=== PATIENT | male | born 1985 | race Two or more races ===

== ENCOUNTER 2019-07-31 00:48 | Inpatient (IN) | payer MEDICAID ==
[~2019-07-31] VITALS: Ht 167.6 cm; Wt 93.0 kg
[2019-07-31] VITALS (12 sets, daily range): BP systolic 90–169; BP diastolic 40–88
--- NOTE | 2019-07-31 00:48 | NUR ---
PT BIB EMS FROM HOME C/O ALTERED POSS OVERDOSE "METH, COCCAINE & ETOH" PER EMS REPORT. PT NONVERBAL. PT ON MONITOR IN BED 4. WILL CONTINUE TO MONITOR.
--- NOTE | 2019-07-31 01:05 | NUR ---
PHLEB AT BEDSIDE FOR BLOOD DRAW
--- NOTE | 2019-07-31 01:09 | NUR ---
TECH AT BEDSIDE FOR EKG
[2019-07-31 01:14] LABS: MONOCYTES # (AUTO) 2.9 /CMM (0.1-1.30)
[2019-07-31] MEDS ORDERED: HALOPERIDOL LACTATE INJ 5 MG/ML VIAL ONE (01:14)
[2019-07-31 01:17] LABS: BASOPHILS % (AUTO) 0.1 % (0.0-2.0); EOSINOPHILS % (AUTO) 0.4 % (0.0-6.0); HEMATOCRIT 41 % (39-51); LYMPHOCYTES % (AUTO) 4.2 % (20.0-44.0); MEAN CORPUSCULAR HGB CONC 34 g/dl (31.0-36.0); MEAN CORPUSCULAR VOLUME 94 fL (80-96); MONOCYTES % (AUTO) 12.2 % (2.0-12.0); NEUTROPHILS # (AUTO) 19.6 /CMM (1.8-8.9); NEUTROPHILS % (AUTO) 83.1 % (43.0-81.0); WHITE BLOOD COUNT (AUTO) 23.6 K/uL (4.3-11.0)
--- NOTE | 2019-07-31 01:19 | NUR ---
PT TAKEN TO RADIOLOGY [facility]IA [facility]
[2019-07-31 01:20] LABS: PLATELET COUNT (AUTO) 36 /CMM (150-450)
[2019-07-31 01:23] LABS: CALCIUM, SERUM 8.3 mg/dL (8.5-10.1); CARBON DIOXIDE 23 mmol/L (21-32); CHLORIDE 93 mmol/L (98-107); CREATININE 1.1 mg/dL (0.6-1.3); GLUCOSE 96 mg/dL (74-106); POTASSIUM 4.8 mmol/L (3.5-5.1); SODIUM SERUM 124 mmol/L (136-145); UREA NITROGEN, BLOOD 26 mg/dL (7-18)
[2019-07-31 01:28] LABS: ALANINE AMINOTRANSFERASE 44 U/L (12-78); ALBUMIN 2.2 g/dL (3.4-5.0); ALCOHOL, BLOOD < 3 mg/dL (0-0); ALKALINE PHOSPHATASE 165 U/L (46-116); ASPARTATE AMINOTRANSFERASE 75 U/L (15-37); BILIRUBIN,DIRECT 5.2 mg/dL (0.0-0.2); BILIRUBIN,TOTAL 7.9 mg/dL (0.2-1.0); TOTAL PROTEIN, SERUM 5.7 g/dL (6.4-8.2)
--- NOTE | 2019-07-31 01:29 | NUR ---
PT RETURNED FROM RADIOLOGY VIA [facility]
[2019-07-31] MEDS ORDERED: HALOPERIDOL LACTATE INJ 5 MG/ML VIAL IM ONE (01:30)
[2019-07-31 01:34] LABS: ACETAMINOPHEN 0 ug/ml (10-30); SALICYLATE < 0.2 mg/dL (2.8-20.0)
--- NOTE | 2019-07-31 01:42 | NUR ---
PT TAKEN TO RADIOLOGY [facility]IA [facility]
--- NOTE | 2019-07-31 01:49 | NUR ---
PT RETURNED FROM RADIOLOGY VIA [facility]
[2019-07-31] MEDS ORDERED: IV NS 0.9% 1,000 ML IV PRN (02:08)
[2019-07-31] MEDS ORDERED: LIDOCAINE 2% JEL UROJET 10 ML MM ONE (02:08)
--- NOTE | 2019-07-31 02:15 | NUR ---
BLOOD DRAWN AND GIVEN TO LAB
--- NOTE | 2019-07-31 02:19 | NUR ---
URINE COLLECTED AND SENT TO LAB
[2019-07-31 02:26] LABS: LYMPHOCYTES % (MANUAL) 4 % (16-48); MONOCYTES % (MANUAL) 10 % (0-11.0); NEUTROPHILS % (MANUAL) 88 (42-76)
[2019-07-31] MEDS ORDERED: ONDANSETRON HCL/PF 4 MG/2 ML VIAL IVP PRN (02:30)
[2019-07-31 02:36] LABS: APPEARANCE,URINE CLEAR (CLEAR); BILIRUBIN,URINE MODERATE (NEGATIVE); BLOOD, URINE TRACE-INTA Ery/uL (NEGATIVE); COLOR,URINE DARK YELLO (YELLOW); KETONES,URINE NEGATIVE (NEGATIVE); LEUKOCYTE ESTERASE ,URINE NEGATIVE (NEGATIVE); NITRITE, URINE NEGATIVE (NEGATIVE); PH,URINE 5.5 (5.0-8.0); PROTEIN,URINE NEGATIVE (NEGATIVE); UGLUCOSE NEGATIVE (NEGATIVE)
[2019-07-31 02:39] LABS: BACTERIA,URINE Few /HPF (None Seen); RBC,URINE 0-2 /HPF (0-2); SQUAMOUS EPITHELIAL CELL,UR Few /HPF (None Seen)
--- NOTE | 2019-07-31 03:04 | NUR ---
REPORT GIVEN TO MADHURI PHILIP FOR STEPHANI
--- NOTE | 2019-07-31 05:39 | NUR ---
TELE/RN ORDER FOR PLATELETS HELD DUE TO PATIENT HAVING A FEVER OF 100.6. WILL GIVE ORDERED TYLENOL AND WILL RE ASSESS FOR ADMINISTRATONG OF PLATELETS
[2019-07-31] MEDS: ACETAMINOPHEN 650 MG/SUPP.RECT RC PRN ×2 (06:17→14:35)
--- NOTE | 2019-07-31 07:15 | NUR ---
VACUUM PAN OPERATOR NOTES OPENING PATIENT IN BED A/O XO WITH FAMILY AT BEDSIDE. NO SIGN OF ANY DISTRESS AT THIS TIME. PATIENT IS SINUS RHYTHM ON THE MONITOR. WILL CONTINUE TO MONITOR PATIENT.
--- NOTE | 2019-07-31 07:47 | NUR ---
TELE/ RN CLOSING NOTE PATIENT IN BED A/O XO WITH FAMILY AT BEDSIDE. NO SIGN OF ANY DISTRESS AT THE MOMENT. PATIENT IS SINUS RHYTHM ON THE MONITOR. ENDORSED TO NURSE PATIENT FEVER AND ALL OTHER PATIENTS NEEDS.
[2019-07-31] MEDS ORDERED: PIPERACILLIN /TAZOBACTAM 3.375 G in IV NS 0.9% 50 ML IV ONE (08:30)
[2019-07-31] MEDS ORDERED: PIPERACILLIN /TAZOBACTAM 3.375 G in IV D5W 50 ML IV ONE (08:31)
[2019-07-31] MEDS ORDERED: THIAMINE HCL 100 MG TABLET PO SCH (09:00)
--- NOTE | 2019-07-31 09:23 | NUR ---
STAINED GLASS GLAZIER HELPER/MED RECON PATIENT UNABLE TO PROVIDE INFO. FAMILY AT BEDSIDE, PER FAMILY "HE DOESN'T TAKE ANY MEDICATION FAR WE KNOW".
[2019-07-31] MEDS: Thiamine 100 MG in IV D5W 50 ML IV SCH (11:26)
[2019-07-31] MEDS: LORAZEPAM INJ 2 MG/ML VIAL IV PRN (12:13)
[2019-07-31] MEDS: Folic acid 1 MG in IV D5W 50 ML IV SCH (12:27)
[2019-07-31] MEDS: PIPERACILLIN /TAZOBACTAM 3.375 G in IV D5W 100 ML IV SCH ×2 (13:04→21:12)
[2019-07-31 14:22] LABS: CREATININE 1.1 mg/dL (0.6-1.3); POTASSIUM 4.4 mmol/L (3.5-5.1)
--- NOTE | 2019-07-31 15:00 | NUR ---
DISCHARGE PLANNER NOTES PATIENT HAS FEVER 100.2, COOLING MEASURE DONE. PATIENT HAS 900ML URINARY RETENTION ( BLADDER SCAN). INFORMED DR LANDIN AND HE ORDERED WHITE CATHETER. PER MD IT IS OK TO ADMINISTER THE PLATELETS.
--- NOTE | 2019-07-31 17:30 | NUR ---
EAP CLINICIAN NOTES PATIENT A/O 1 OPEN EYES WHEN NAME CALLED.ALL NEEDS ATTENDED. NO FEVER NOTED AT THIS TIME. PLATELETS ADMINISTRATED PER MD ORDER AND PT TOLERATED WELL WITH NO FEVER, VITAL WNL. ENDORSED TO HR ANALYST NURSE FOR STEPHANI.
--- NOTE | 2019-07-31 19:40 | NUR ---
RN Notes Patient asleep, opens eyes to verbal and tactile stimuli, patient very lethargic. Attached to med therm to monitor body temperature. Tele monitor reads Sinus rhythm with heart rate at 78. IV access on left AC patent and intact with ongoing IVF infusing well. Alex intact to gravity with brown colored urine. Kept comfortable and attended. Will continue to monitor.
[2019-08-01] VITALS: BP 102/47
--- NOTE | 2019-08-01 00:30 | NUR ---
RN Notes Received a call from Lab, blood culture has gram positive cocci in chains. COLLETTE Lomeli notified with order of Vancomycin pharmacy to dose. Pharmacy made aware.
[2019-08-01] MEDS ORDERED: VANCOMYCIN 1 GM VIAL ONE (00:42)
[2019-08-01] MEDS ORDERED: VANCOMYCIN 2 GM in IV NS 0.9% 500 ML IV ONE (01:00)
[2019-08-01 04:00] VITALS: BP 125/60
[2019-08-01] MEDS: PIPERACILLIN /TAZOBACTAM 3.375 G in IV D5W 100 ML IV SCH ×3 (05:03→20:55)
--- NOTE | 2019-08-01 07:09 | NUR ---
RN Notes Patient awake, alert and oriented x2, verbal, denies any pain. Vital signs stable, afebrile. Tele monitor reads Sinus rhythm. Current diet tolerated well, no signs of aspiration noted. Safety measures and fall precaution observed. Kept clean and dry. Patient starts to wake up, and constantly moving in bed, scratching his feet and was noted with open wound in right ankle measuring 3cm x 2cm. Cleansed with NS and covered with mepilex and elevate legs in pillows. Frank Fu DNP notified. Wound care consult ordered. Seen by wound nurse. Incident report done.
[2019-08-01 07:10] LABS: BASOPHILS # (AUTO) 0.2 /CMM (0.0-0.2); BASOPHILS % (AUTO) 0.5 % (0.0-2.0); EOSINOPHILS % (AUTO) 0.3 % (0.0-6.0); HEMATOCRIT 42 % (39-51); HEMOGLOBIN 14.1 g/dL (13.5-17.5); LYMPHOCYTES # (AUTO) 1.9 /CMM (0.8-4.8); MEAN CORPUSCULAR HGB CONC 34 g/dl (31.0-36.0); MEAN CORPUSCULAR VOLUME 93 fL (80-96); MONOCYTES # (AUTO) 3.9 /CMM (0.1-1.30); MONOCYTES % (AUTO) 12.7 % (2.0-12.0); NEUTROPHILS # (AUTO) 24.9 /CMM (1.8-8.9); NEUTROPHILS % (AUTO) 80.5 % (43.0-81.0); RED BLOOD CELL COUNT(AUTO) 4.45 MIL/uL (4.5-6.0)
[2019-08-01 07:33] LABS: PLATELET COUNT (AUTO) 39 /CMM (150-450)
[2019-08-01 07:42] LABS: ALBUMIN 1.9 g/dL (3.4-5.0); BILIRUBIN,TOTAL 9.2 mg/dL (0.2-1.0); CALCIUM, SERUM 7.7 mg/dL (8.5-10.1); MAGNESIUM 2.9 mg/dL (1.8-2.4); PHOSPHORUS 2.8 mg/dL (2.5-4.9); TOTAL PROTEIN, SERUM 5.5 g/dL (6.4-8.2)
[2019-08-01 07:48] LABS: THYROID STIMULATING HORMONE 2.036 uIU/mL (0.358-3.74); URIC ACID 4.3 mg/dL (2.6-7.2)
--- NOTE | 2019-08-01 07:58 | NUR ---
RN OPENING NOTES RECEIVED PT IN BED, ASLEEP BUT EASILY AWAKEN WITH LIGHT TOUCH. IN NO APPARENT DISTRESS NOTED. ON ROOM AIR, NO SOB NOTED. IV ACCESS ON LAC #22 WITH ON GOING D5NS @ 100ML /HR, WITH REMAINING 50ML ON THE BAG. IV SITE INTACT, PATENT, AND FLUSHED WELL. NO INFILTRATION NOTED. WHITE CATHETER DRAINING JESÚS COLOR URINE VIA GRAVITY WITH 150ML OUTPUT ON THE BAG. BED ON LOWEST POSITION AND LOCKED. CALL LIGHT WITHIN REACH FOR EASY ACCESS. WILL CONTINUE TO MONITOR
[2019-08-01 08:00] VITALS: BP 109/67
[2019-08-01] MEDS ORDERED: VANCOMYCIN 1 GM VIAL IV ONE (08:29)
[2019-08-01 08:47] LABS: BAND % (MANUAL) 2 % (0.0-5.0); LYMPHOCYTES % (MANUAL) 4 % (16-48); MONOCYTES % (MANUAL) 12 % (0-11.0); NEUTROPHILS % (MANUAL) 82 (42-76)
[2019-08-01] MEDS ORDERED: FEE PK DOSING 1 MIN EA MC ONE (08:52)
--- NOTE | 2019-08-01 09:04 | NUR ---
RN NOTES RECEIVED A CALL FROM LAB FOR CRITICAL RESULT OF WBC AND PLATELET. DR SWATI Marie MADE AWARE. NO NEW ORDER.
[2019-08-01] MEDS: ACETAMINOPHEN 650 MG/SUPP.RECT RC PRN (09:22)
--- NOTE | 2019-08-01 09:22 | NUR ---
RN NOTES DR SWATI Marie MADE AWARE ABOUT THE TEMPERATURE OF 100.6. ADMINISTERED TYLENOL SUP
[2019-08-01] MEDS: VANCOMYCIN 1 GM in IV D5W 250 ML IV SCH ×2 (09:34→17:29)
[2019-08-01 09:48] LABS: ABG BASE EXCESS 0.2 mmol/L; ABG OXYGEN SATURATION 94.4 % (92.0-98.5); ABG PCO2 28.4 mmHg (35.0-45.0); ABG PH 7.508 (7.350-7.450); ABG PO2 72.3 mmHg (75.0-100.0); AaDO2 43.4 mmHg; MetHb 0.4 % (0.0-1.5); O2Hb 93.1 % (94.0-97.0); SITE, ABG Right Radial; VENT MODE, BG ROOM AIR
--- NOTE | 2019-08-01 11:05 | NUR ---
WOUND CARE CONSULT: PT PRESENTS WITH ABRASION TO RT LATERAL ANKLE. PER MULTIPLE NURSING REPORTS, PT WAS ALTERED AND RESTLESS AND NOTED TO BE RUBBING HIS LATERAL FOOT/ANKLE ON THE BED. WOUND IS NOT PRESSURE RELATED. RECOMMEND DPM CONSULT. DR GIRALDO NOTIFIED OF CONSULT REQUEST. PT IS RESTING AT THIS TIME. WILL SEE PRN. KUHN IN AGREEMENT WITH PLAN OF CARE. CINDY MCKINNON NOTED. Addendum: 08/01/19 at 1108 by MARILIA MOLINA WNDNU Amended: Links added.
[2019-08-01] MEDS: IV D5/ 0.9% NACL 1,000 ML IV PRN ×2 (11:50→21:51)
[2019-08-01] MEDS: Folic acid 1 MG in IV D5W 50 ML IV SCH (11:51)
[2019-08-01] MEDS: Thiamine 100 MG in IV D5W 50 ML IV SCH (11:55)
[2019-08-01] MEDS: MORPHINE SULFATE INJ 2 MG/ML DISP.SYRIN IV PRN (15:38)
[2019-08-01 16:00] VITALS: BP 133/62
--- NOTE | 2019-08-01 19:21 | NUR ---
RN CLOSING NOTES PATIENT IN BED ASLEEP, IN NO APPARENT DISTRESS NOTED. ON ROOM AIR, SATURATING WELL. NO SOB NOTED. IV ACCESS ON L AC AND R WRIST INTACT, PATENT AND NO SIGNS OF INFILTRATION. KEPT CLEAN AND DRY. ALL NEEDS MET. ENDORSED TO PM RN FOR CONTINUITY OF CARE.
--- NOTE | 2019-08-01 19:31 | NUR ---
MS RN RECEIVED PATIENT IN BED A/O X 1, STABLE AND NOT IN DISTRESS. WILL CONTINUE TO MONITOR
[2019-08-01 20:00] VITALS: BP 144/77
[2019-08-01] MEDS: LORAZEPAM INJ 2 MG/ML VIAL IV PRN (21:18)
--- NOTE | 2019-08-01 22:15 | NUR ---
PT CALM SLEEPING AND NOT IN DISTRESS
[2019-08-02] MEDS: VANCOMYCIN 1 GM in IV D5W 250 ML IV SCH ×3 (01:12→16:40)
[2019-08-02] MEDS: MORPHINE SULFATE INJ 2 MG/ML DISP.SYRIN IV PRN ×2 (02:21→12:39)
[2019-08-02 04:00] VITALS: BP 126/68
[2019-08-02] MEDS: PIPERACILLIN /TAZOBACTAM 3.375 G in IV D5W 100 ML IV SCH ×2 (04:51→12:18)
--- NOTE | 2019-08-02 06:20 | NUR ---
MS RN PT SLEPT WELL. NO S/S OF DISTRESS, STABLE. NEEDS ATTENDED AND ANTICIPATED, KEPT CLEAN, DRY AND COMFORTABLE. AM CARE RENDERED. NO C/O PAIN AT HIS TIME. MONITORED FOR PAIN AND S/S OF WITHDRAWAL. SAFETY MEASURES AT ALL TIMES. WILL ENDORSE POC.
[2019-08-02 06:22] LABS: BASOPHILS # (AUTO) 0.1 /CMM (0.0-0.2); BASOPHILS % (AUTO) 0.4 % (0.0-2.0); EOSINOPHILS % (AUTO) 0.4 % (0.0-6.0); HEMATOCRIT 39 % (39-51); HEMOGLOBIN 13.1 g/dL (13.5-17.5); LYMPHOCYTES % (AUTO) 6.9 % (20.0-44.0); MEAN CORPUSCULAR HGB CONC 33 g/dl (31.0-36.0); MEAN CORPUSCULAR VOLUME 94 fL (80-96); MONOCYTES # (AUTO) 3.1 /CMM (0.1-1.30); MONOCYTES % (AUTO) 10.6 % (2.0-12.0); NEUTROPHILS % (AUTO) 81.7 % (43.0-81.0); RED BLOOD CELL COUNT(AUTO) 4.17 MIL/uL (4.5-6.0); WHITE BLOOD COUNT (AUTO) 29.3 K/uL (4.3-11.0)
[2019-08-02 06:34] LABS: PLATELET COUNT (AUTO) 37 /CMM (150-450)
[2019-08-02 06:36] LABS: CALCIUM, SERUM 7.1 mg/dL (8.5-10.1); CREATININE 0.9 mg/dL (0.6-1.3); MAGNESIUM 2.9 mg/dL (1.8-2.4); PHOSPHORUS 2.4 mg/dL (2.5-4.9); POTASSIUM 4.1 mmol/L (3.5-5.1)
--- NOTE | 2019-08-02 06:40 | NUR ---
REPORTED CRITICAL RESULT PLATELET 37 AND GRAM + COCCI IN CHAIN SEEN ON GRAM STAIN REPORTED TO HOSPITALIST AWAITING CALL BACK
--- NOTE | 2019-08-02 06:58 | NUR ---
ENDORSE TO NEXT RN CRITICAL LAB VALUE OF PLATELET TO FF UP M.D. STILL WAITING ORDERS
--- NOTE | 2019-08-02 07:30 | NUR ---
RN OPENING NOTES RECEIVED PATIENT IN BED,ALERT AND ORIENTED X2, AGITATED AND MOVING AROUND THE BED. PATIENT IS A MED SURG PATIENT, IN STABLE CONDITION, PLATELETS LEVEL LOW, MARKETING CLERK NOTIFIED HOSPITALIST, WILL FOLLOW UP WITH DAY SHIFT MD WHEN ROUNDING. PATIENT HAS A WHITE IN PLACE, INTACT AND DRAINING URINE. SAFETY MAINTAINED, CALL LIGHT WITHIN REACH, WILL CONTINUE TO MONITOR.
[2019-08-02 08:00] VITALS: BP 137/72
[2019-08-02] MEDS: LORAZEPAM INJ 2 MG/ML VIAL IV PRN ×2 (08:02→16:40)
[2019-08-02] MEDS: FOLIC ACID 1 MG TABLET PO SCH (08:24)
[2019-08-02] MEDS: THIAMINE HCL 100 MG TABLET PO SCH (08:24)
[2019-08-02] MEDS ORDERED: K PHOS NEUTRAL 250 MG TABLET PO ONE (08:30)
[2019-08-02 08:56] LABS: EOSINOPHILS % (MANUAL) 1 % (0-4); LYMPHOCYTES % (MANUAL) 4 % (16-48); MONOCYTES % (MANUAL) 15 % (0-11.0); NEUTROPHILS % (MANUAL) 80 (42-76)
[2019-08-02] MEDS: ACETAMINOPHEN 650 MG/SUPP.RECT RC PRN (15:48)
--- NOTE | 2019-08-02 15:50 | NUR ---
RNNOTE PATIENT HAS A FEVER OF 101.2, DR LONGORIA IS AWARE. PRN TYLENOL WAS GIVEN TO THE PATIENT.
[2019-08-02 16:00] VITALS: BP 138/66
[2019-08-02] MEDS ORDERED: CEFTRIAXONE 2 G in IV D5W 100 ML IV SCH (18:00)
[2019-08-02] MEDS: CEFTRIAXONE 2 G in IV D5W 100 ML IV SCH (18:07)
--- NOTE | 2019-08-02 18:40 | NUR ---
RN CLOSING NOTES PATIENT IS IN STABLE CONDITION, NO ACUTE CHANGES TO PATIENT CONDITION DURING MY SHIFT. ALL PATIENT NEEDS MET. CAREGIVER AT BEDSIDE, NO DISTRESS IS NOTED. PATIENT IS RESTLESS, MOVING AROUND BED FROM SIDE TO SIDE. ATIVAN WAS ADMINISTERED TO RELIEVE SYMPTOMS AT AROUND 1700. PATIENT ON ROOM AIR, TOLERATING WELL. SATURATION IS 93. IV INTACT, FLUSHED WELL. NO SIGNS AND SYMPTOMS OF INFECTION IS NOTED. PATIENT KEPT CLEAN AND DRY. SAFETY MAINTAINED, CALL LIGHT WITHIN REACH. WILL ENDORSE TO DIRECTOR OF SOFTWARE DEVELOPMENT NURSE TO CONTINUE CARE.
--- NOTE | 2019-08-02 19:17 | NUR ---
RN CLOSING NOTES ENDORSED TO CERTIFIED PROCEDURAL CODER NURSE TO CONTINUE CARE. ALL NEEDS MET. SAFETY MAINTAINED. NO CHANGES SINCE LAST NOTE. CALL LIGHT WITHIN REACH. PM NURSE WILL CONTINUE CARE.
[2019-08-02 20:00] VITALS: BP 112/65
[2019-08-02] MEDS: IV D5/ 0.9% NACL 1,000 ML IV PRN (20:27)
[2019-08-03] MEDS: MORPHINE SULFATE INJ 2 MG/ML DISP.SYRIN IV PRN ×3 (00:04→19:37)
[2019-08-03 04:00] VITALS: BP 136/57
[2019-08-03] MEDS: CEFTRIAXONE 2 G in IV D5W 100 ML IV SCH ×2 (05:28→17:12)
--- NOTE | 2019-08-03 06:28 | NUR ---
MS RN NOTES AWAKE & RESPONSIVE. NOT IN ANY DISTRESS. NO SOB NOTED. DENIES ANY PAIN OR DISCOMFORT AT THIS TIME. WITH IVF INFUSING WELL. WITH F/C DRAINING TO DARK YELLOWISH OUTPUT MODERATE IN AMOUNT. AM CARE DONE. MONITORED ACCORDINGLY. CALL LIGHT WITHIN REACH. BED IN LOWEST POSITION. SR UP X 3 WITH BED ALARM ON FOR SAFETY. WILL ENDORSE TO NEXT SHIFT.
[2019-08-03] MEDS: LORAZEPAM INJ 2 MG/ML VIAL IV PRN (06:39)
[2019-08-03 07:16] LABS: BASOPHILS # (AUTO) 0.2 /CMM (0.0-0.2); BASOPHILS % (AUTO) 0.6 % (0.0-2.0); HEMATOCRIT 42 % (39-51); HEMOGLOBIN 13.9 g/dL (13.5-17.5); LYMPHOCYTES # (AUTO) 2.1 /CMM (0.8-4.8); LYMPHOCYTES % (AUTO) 7.7 % (20.0-44.0); MEAN CORPUSCULAR HGB CONC 33 g/dl (31.0-36.0); MEAN CORPUSCULAR VOLUME 95 fL (80-96); MONOCYTES # (AUTO) 2.8 /CMM (0.1-1.30); NEUTROPHILS # (AUTO) 22.4 /CMM (1.8-8.9); NEUTROPHILS % (AUTO) 80.7 % (43.0-81.0); RED BLOOD CELL COUNT(AUTO) 4.35 MIL/uL (4.5-6.0); WHITE BLOOD COUNT (AUTO) 27.8 K/uL (4.3-11.0)
[2019-08-03 07:33] LABS: CALCIUM, SERUM 7.6 mg/dL (8.5-10.1); CREATININE 0.9 mg/dL (0.6-1.3); MAGNESIUM 2.9 mg/dL (1.8-2.4); PHOSPHORUS 2.4 mg/dL (2.5-4.9); POTASSIUM 3.9 mmol/L (3.5-5.1)
[2019-08-03 07:46] LABS: PLATELET COUNT (AUTO) 39 /CMM (150-450)
[2019-08-03 08:00] VITALS: BP 127/64
[2019-08-03 08:00] LABS: BAND % (MANUAL) 5 % (0.0-5.0); EOSINOPHILS % (MANUAL) 1 % (0-4); LYMPHOCYTES % (MANUAL) 7 % (16-48); MONOCYTES % (MANUAL) 8 % (0-11.0); NEUTROPHILS % (MANUAL) 79 (42-76)
--- NOTE | 2019-08-03 08:00 | NUR ---
MS1/RN AM SHIFT OPENING NOTES RECEIVED PT ASLEEP, PT A/O 1-2, EASILY AROUSED, RESTLESS, MOVES AROUND THE BED A LOT, NO ACUTE CHANGE OF CONDITION. ON ROOM AIR SATURATING @ 94%, RESPIRATIONS EVEN & UNLABORED, LUNG SOUNDS CLEAR. IV SITE, FLUSHED, PATENT ON SL, RE-INSERTED IV FLUIDS, EVEN WITH FLUSHING IV SITE AND IS PATENT, PT KEEPS MOVING AROUND IN BED, IV PUMP KEEPS ALARMING D/T HIS MOVEMENT. SCHEDULED AM MEDS TO BE GIVEN. CL WITHIN REACHED AND SAFETY MAINTAINED. ON GOING MONITORING. Addendum: 08/03/19 at 0949 by LILIAN JIM RN ADDENDUM: WHITE CATHETER INTACT WITH TEA COLORED URINE OUTPUT.
[2019-08-03] MEDS: FOLIC ACID 1 MG TABLET PO SCH (08:33)
[2019-08-03] MEDS: THIAMINE HCL 100 MG TABLET PO SCH (08:33)
[2019-08-03] MEDS: IV D5/ 0.9% NACL 1,000 ML IV PRN (09:26)
[2019-08-03] MEDS: FUROSEMIDE 20 MG/2 ML VIAL IV SCH (10:46)
[2019-08-03] MEDS ORDERED: K PHOS NEUTRAL 250 MG TABLET PO ONE (11:00)
[2019-08-03 11:01] LABS: APPEARANCE,URINE CLOUDY (CLEAR); BILIRUBIN,URINE MODERATE (NEGATIVE); BLOOD, URINE LARGE Ery/uL (NEGATIVE); COLOR,URINE DARK YELLO (YELLOW); KETONES,URINE NEGATIVE (NEGATIVE); LEUKOCYTE ESTERASE ,URINE TRACE (NEGATIVE); NITRITE, URINE NEGATIVE (NEGATIVE); PROTEIN,URINE 30 mg/dl (NEGATIVE); UGLUCOSE NEGATIVE (NEGATIVE)
[2019-08-03 11:07] LABS: BACTERIA,URINE Rare /HPF (None Seen); MUCUS,URINE Few /LPF (None Seen); RBC,URINE TOO NUMEROUS TO COUN /HPF (0-2); SQUAMOUS EPITHELIAL CELL,UR 0-2 /HPF (None Seen); URINE AMORPHOUS URATE Few /HPF (None Seen)
[2019-08-03 12:03] LABS: CREATININE, URINE 134.1 MG/DL (30.0-125.0); URINE TOTAL PROTEIN 71.6 mg/dL (0-11.9)
[2019-08-03 12:10] LABS: EOSINOPHIL,URINE None Seen
--- NOTE | 2019-08-03 15:15 | NUR ---
MS1/RN AFTERNOON ROUNDS NO CHANGE OF CONDITION. MONITORING CONTINUED.
[2019-08-03 16:00] VITALS: BP 121/75
[2019-08-03] MEDS: ACETAMINOPHEN 325 MG TABLET PO PRN (17:12)
--- NOTE | 2019-08-03 19:15 | NUR ---
MS1/RN AM SHIFT END NOTES ALL NEEDS MET, NO ACUTE CHANGE OF CONDITION NOTED DURING THE SHIFT. PT ENDORSED TO PM NURSE TO CONTINUE CARE. BILATERAL SOFT WRIST RESTRAINTS IN PLACED. CL WITHIN REACHED AND SAFETY MAINTAINED.
--- NOTE | 2019-08-03 19:16 | NUR ---
MS RN CLOSING NOTES Received patient awake, mildly agitated on bed. On RA, no SOB/respiratory distress noted. With bilateral soft wrist restrain, patient unable to follow safety instruction. Mother at bedside. With FC indwelling well. No s/sx of discomfort noted at this time. Kept on bed clean, dry and comfortable. On fall and aspiration precautions. Call light within easy reach. Will continue to monitor accordingly. Addendum: 08/04/19 at 0700 by ALBA MATIAS RN DUPLICATE ENTRY - OPENING NOTES
--- NOTE | 2019-08-03 19:16 | NUR ---
MS RN OPENING NOTES Received patient awake, mildly agitated on bed. On RA, no SOB/respiratory distress noted. With bilateral soft wrist restrain, patient unable to follow safety instruction. Mother at bedside. With FC indwelling well. No s/sx of discomfort noted at this time. Kept on bed clean, dry and comfortable. On fall and aspiration precautions. Call light within easy reach. Will continue to monitor accordingly.
[2019-08-03 20:00] VITALS: BP 123/57
[2019-08-04] MEDS: LORAZEPAM INJ 2 MG/ML VIAL IV PRN ×3 (00:23→20:18)
[2019-08-04] MEDS: IV D5/ 0.9% NACL 1,000 ML IV PRN ×2 (01:25→14:39)
[2019-08-04] MEDS: MORPHINE SULFATE INJ 2 MG/ML DISP.SYRIN IV PRN ×4 (01:31→18:41)
[2019-08-04 04:00] VITALS: BP 136/72
[2019-08-04] MEDS: CEFTRIAXONE 2 G in IV D5W 100 ML IV SCH ×2 (05:32→17:32)
--- NOTE | 2019-08-04 06:51 | NUR ---
MS RN CLOSING NOTES Patient had pulled out his midline around 0630. Midline catheter remained complete and intact. minimal bleeding noted on pillow, beddings and patient's body. Ensured no active bleeding noted. Cleaned up patient from blood, beddings changed. Resumed IVF on R wirst. All nursing needs attended. Still with confusion noted. Closely monitored, no new unusualities noted. Kept on bed clean, dry and comfortable. Call light within easy reach. On fall and aspiration precautions. Endorsed.
[2019-08-04 07:13] LABS: ALBUMIN 1.8 g/dL (3.4-5.0); BASOPHILS # (AUTO) 0.3 /CMM (0.0-0.2); BASOPHILS % (AUTO) 1.1 % (0.0-2.0); BILIRUBIN,TOTAL 8.5 mg/dL (0.2-1.0); CALCIUM, SERUM 7.4 mg/dL (8.5-10.1); CREATININE 0.9 mg/dL (0.6-1.3); EOSINOPHILS % (AUTO) 1.1 % (0.0-6.0); HEMATOCRIT 39 % (39-51); LYMPHOCYTES # (AUTO) 2.3 /CMM (0.8-4.8); LYMPHOCYTES % (AUTO) 7.6 % (20.0-44.0); MAGNESIUM 2.6 mg/dL (1.8-2.4); MEAN CORPUSCULAR HGB CONC 34 g/dl (31.0-36.0); MEAN CORPUSCULAR VOLUME 96 fL (80-96); MONOCYTES # (AUTO) 2.7 /CMM (0.1-1.30); MONOCYTES % (AUTO) 8.9 % (2.0-12.0); NEUTROPHILS # (AUTO) 24.4 /CMM (1.8-8.9); NEUTROPHILS % (AUTO) 81.3 % (43.0-81.0); PHOSPHORUS 2.4 mg/dL (2.5-4.9); POTASSIUM 4.4 mmol/L (3.5-5.1); TOTAL PROTEIN, SERUM 6.1 g/dL (6.4-8.2)
[2019-08-04 07:53] LABS: PLATELET COUNT (AUTO) 42 /CMM (150-450)
[2019-08-04 08:00] VITALS: BP 121/55
--- NOTE | 2019-08-04 08:00 | NUR ---
MS1/RN AM SHIFT OPENING NOTES RECEIVED PT DROWSY, BUT EASILY AWAKEN. PT A/O X 1-2, UNABLE TO STATE WHERE HE IS, NO CHANGE OF MENTATION FROM YESTERDAY. RESTLESS AND SLURS WORDS. COMPLAINT OF GENERALIZED PAIN RATED 8/10, ON ROOM AIR, SATURATING @ 93%, RESPIRATIONS EVEN & UNLABORED, LUNG SOUNDS CLEAR. PER PM NURSE PT PULLED OUT MIDLINE. ON GOING INFUSION OF D5NS @ 100CC/HR, IV SITE ON RIGHT WRIST, PATENT WITH NO S/S OF INFECTION. WHITE CATHETER INTACT WITH TEA TO JESÚS COLORED URINE OUTPUT. BILATERAL SOFT WRIST RESTRAINTS IN PLACED, RELEASED TO CHECK FOR COMFORT AND CIRCULATION, THEN PLACED BACK. SCHEDULED AM MEDS TO BE GIVEN. CL WITHIN REACHED AND SAFETY MAINTAINED. ON GOING MONITORING.
[2019-08-04] MEDS: FOLIC ACID 1 MG TABLET PO SCH (08:33)
[2019-08-04] MEDS: THIAMINE HCL 100 MG TABLET PO SCH (08:33)
[2019-08-04] MEDS: FUROSEMIDE 20 MG/2 ML VIAL IV SCH (08:33)
[2019-08-04 09:30] LABS: BAND % (MANUAL) 2 % (0.0-5.0); LYMPHOCYTES % (MANUAL) 3 % (16-48); MONOCYTES % (MANUAL) 5 % (0-11.0); MYELOCYTES % 1 % (0-0); NEUTROPHILS % (MANUAL) 89 (42-76)
[2019-08-04] MEDS ORDERED: LACTULOSE 10 G/15 ML UDC (PYXIS) PO PRN (12:00)
--- NOTE | 2019-08-04 12:00 | NUR ---
MS1/RN NOON ROUNDS NO CHANGE OF CONDITION.
[2019-08-04 16:00] VITALS: BP 141/62
[2019-08-04] MEDS ORDERED: K PHOS NEUTRAL 250 MG TABLET PO ONE (16:30)
--- NOTE | 2019-08-04 17:30 | NUR ---
MS1/RN AFTERNOON ROUNDS PM CARE PROVIDED. NO ACUTE CHANGE OF CONDITION. ON GOING MONITORING.
[2019-08-04] MEDS ORDERED: PIPERACILLIN /TAZOBACTAM 3.375 G in IV D5W 50 ML IV ONE (18:30)
--- NOTE | 2019-08-04 19:30 | NUR ---
RN CLOSING NOTES: PATIENT IN BED, AWAKE, AND VERBALLY RESPONSIVE. NO SOB. NO C/O PAIN AT THIS TIME. ELAN MIDLINE C/D/I. ON D5 NS AT 100 MLS/HR RUNNING, TOLERATING WELL. ON SOFT WRIST BILATERAL RESTRAINTS. SKIN WARM TO TOUCH. SITTER AT BEDSIDE. SAFETY PRECAUTIONS IMPLEMENTED. BED LOCKED, ALARM ON, AND IN LOWEST POSITION. HOB ELEVATED. CALL LIGHT PLACED WITHIN REACH. WILL CONT. TO MONITOR. Addendum: 08/04/19 at 2242 by TRE RODRIGUEZ RN CORRECTION: RN OPENING NOTES
--- NOTE | 2019-08-04 19:30 | NUR ---
RN NOTE: PATIENT'S O2 SAT ON RA 88-89%. PLACED ON O2 AT 2LPM VIA NC, O2 SAT IMPROVED TO 93-94%. NO RESPIRATORY DISTRESS NOTED. WILL CONT. TO MONITOR.
--- NOTE | 2019-08-04 19:33 | NUR ---
MS1/RN AM SHIFT END NOTES ALL NEEDS MET. NO ACUTE CHANGE OF CONDITION NOTED DURING THE SHIFT. PT ENDORSED TO PM NURSE TO CONTINUE CARE. SITTER AT BEDSIDE. CL WITHIN REACHED AND SAFETY MAINTAINED.
[2019-08-04 20:00] VITALS: BP 151/68
[2019-08-04] MEDS: ACETAMINOPHEN 325 MG TABLET PO PRN (20:01)
[2019-08-04] MEDS: METRONIDAZOLE 500 MG TABLET PO SCH (20:01)
--- NOTE | 2019-08-04 23:14 | NUR ---
RN NOTE: SPOKE WITH [facility] PHARMACIST REGARDING ZOSYN SCHEDULED AT 0000. PATIENT RECEIVED A ONE TIME DOSE AT 1900. PER PHARMACIST, HE WILL RESCHEDULE IT FROM 0000 TO 0100.
[2019-08-05] VITALS (22 sets, daily range): BP systolic 104–183; BP diastolic 48–101
[2019-08-05] MEDS: MORPHINE SULFATE INJ 2 MG/ML DISP.SYRIN IV PRN ×3 (00:56→16:57)
[2019-08-05] MEDS: PIPERACILLIN /TAZOBACTAM 3.375 G in IV D5W 100 ML IV SCH ×3 (01:27→18:39)
[2019-08-05] MEDS: IV D5/ 0.9% NACL 1,000 ML IV PRN ×2 (03:35→13:47)
[2019-08-05] MEDS: LORAZEPAM INJ 2 MG/ML VIAL IV PRN ×2 (03:45→16:57)
[2019-08-05] MEDS: METRONIDAZOLE 500 MG TABLET PO SCH ×2 (04:20→12:55)
--- NOTE | 2019-08-05 05:45 | NUR ---
MADHURI NOTE: PATIENT NOTED WITH SEVERE AGITATION AND RESTLESSNESS M/B ATTEMPTING TO REMOVE BILATERAL SOFT WRIST RESTRAINTS AND YELLING. FREQUENT RE-ORIENTATION PROVIDED TO PATIENT. ATIVAN 1 MG PRN ORDERED WAS GIVEN, INEFFECTIVE. THOMPSON BAGLEY NP. Addendum: 08/05/19 at 0700 by TRE RODRIGUEZ RN 0605: RECEIVED NEW ORDER FROM MAGNUS BAGLEY NP. NOTED AND CARRIED OUT.
[2019-08-05] MEDS ORDERED: OLANZAPINE 10 MG VIAL IM ONE ×2 (06:00→06:02)
[2019-08-05 07:00] LABS: BASOPHILS # (AUTO) 0.1 /CMM (0.0-0.2); BASOPHILS % (AUTO) 0.6 % (0.0-2.0); HEMATOCRIT 36 % (39-51); HEMOGLOBIN 12.3 g/dL (13.5-17.5); LYMPHOCYTES # (AUTO) 2.3 /CMM (0.8-4.8); LYMPHOCYTES % (AUTO) 9.1 % (20.0-44.0); MEAN CORPUSCULAR HGB CONC 34 g/dl (31.0-36.0); MEAN CORPUSCULAR VOLUME 97 fL (80-96); MONOCYTES # (AUTO) 2.4 /CMM (0.1-1.30); MONOCYTES % (AUTO) 9.4 % (2.0-12.0); NEUTROPHILS # (AUTO) 20.6 /CMM (1.8-8.9); NEUTROPHILS % (AUTO) 79.9 % (43.0-81.0); RED BLOOD CELL COUNT(AUTO) 3.74 MIL/uL (4.5-6.0); WHITE BLOOD COUNT (AUTO) 25.8 K/uL (4.3-11.0)
--- NOTE | 2019-08-05 07:10 | NUR ---
RN CLOSING NOTES: PATIENT IN BED, AWAKE, AND VERBALLY RESPONSIVE. NOTED WITH EPISODES OF ANXIETY AND RESTLESSNESS DURING SHIFT. NO SOB AT THIS TIME. NO C/O PAIN. ELAN MIDLINE C/D/I. ON D5 NS AT 100 MLS/HR RUNNING, TOLERATING WELL. ON SOFT WRIST BILATERAL RESTRAINTS. SKIN WARM TO TOUCH WITH GOOD CIRCULATION. SAFETY PRECAUTIONS IMPLEMENTED. BED LOCKED, ALARM ON, AND IN LOWEST POSITION. HOB ELEVATED. CALL LIGHT PLACED WITHIN REACH. ENDORSED TO AM SHIFT NURSE FOR CONTINUITY OF CARE.
[2019-08-05 08:18] LABS: PLATELET COUNT (AUTO) 41 /CMM (150-450)
[2019-08-05 08:22] LABS: CALCIUM, SERUM 7.4 mg/dL (8.5-10.1); CREATININE 0.8 mg/dL (0.6-1.3); MAGNESIUM 2.4 mg/dL (1.8-2.4); PHOSPHORUS 2.6 mg/dL (2.5-4.9); POTASSIUM 4.2 mmol/L (3.5-5.1)
[2019-08-05] MEDS: FOLIC ACID 1 MG TABLET PO SCH (09:14)
[2019-08-05] MEDS: THIAMINE HCL 100 MG TABLET PO SCH (09:14)
[2019-08-05] MEDS: SPIRONOLACTONE 25 MG TABLET PO SCH (09:14)
[2019-08-05] MEDS: FUROSEMIDE 20 MG/2 ML VIAL IV SCH (09:14)
[2019-08-05 09:18] LABS: EOSINOPHILS % (MANUAL) 1 % (0-4); LYMPHOCYTES % (MANUAL) 5 % (16-48); MONOCYTES % (MANUAL) 8 % (0-11.0); NEUTROPHILS % (MANUAL) 86 (42-76)
[2019-08-05] MEDS: ACETAMINOPHEN 325 MG TABLET PO PRN (10:54)
--- NOTE | 2019-08-05 14:19 | NUR ---
MS1/RN PARACENTESIS ULTRASOUND OF THE ABDOMEN CONFIRMED ASCITES. CONSENT OBTAINED FROM PT'S MOTHER FOR PARACENTESIS TOMORROW MORNING.
[2019-08-05] MEDS ORDERED: LACTULOSE 10 G/15 ML UDC (PYXIS) PO SCH ×2 (16:00)
--- NOTE | 2019-08-05 17:13 | NUR ---
MS1/RN RESPIRATORY DISTRESS PT NOTED WITH O2 SATURATION FAST DECREASING FROM 92%, 71% & 695 ON 2L O2 VIA N/C. RESPIRATIONS SHALLOW AND INCREASED, ASSESSED LUNG SOUNDS NOTED RHONCHI, PT VERBALIZED UNABLE TO BREATHE. PLACED A CALL TO DR. PANTOJA AND RAPID RESPONSE ACTIVATED.
--- NOTE | 2019-08-05 17:20 | NUR ---
CHARGE NURSE NOTES PATIENT FOUND HAVING DIFFICULTY BREATHING. SHALLOW AND FAST. O2 SAT AT 79% DESPITE O2 AT 4-5 LITERS O2. RAPID RESPONSE CALLED. DR. PANTOJA NOTIFIED VIA EXCHANGE.
[2019-08-05 17:24] LABS: ABG BASE EXCESS -6.5 mmol/L; ABG OXYGEN SATURATION 95.9 % (92.0-98.5); ABG PCO2 32.2 mmHg (35.0-45.0); ABG PH 7.363 (7.350-7.450); ABG PO2 92.5 mmHg (75.0-100.0); AaDO2 588.3 mmHg; COHb 0.8 % (0.5-1.5); MetHb 0.5 % (0.0-1.5); O2Hb 94.7 % (94.0-97.0); SITE, ABG Left Radial; VENT MODE, BG NON-REBREATHER
--- NOTE | 2019-08-05 17:25 | NUR ---
ICU/HOTEL SERVICE MANAGER TO ICU PT TRANSFERRED TO ICU, PLACED ON BI-PAP, REPORT GIVEN TO ICU ARPI, ENDORSED TO CONTINUE CARE. PT'S MOTHER AT BEDSIDE EXPLAINING PT'S CONDITION WITH BINDER LAYER.
--- NOTE | 2019-08-05 17:30 | NUR ---
CHARGE NOTES PER DR. PANTOJA, TRANSFER PATIENT TO ICU PATIENT NEEDS TO BE ON BIPAP. DIGITAL DESIGNER NOTIFIED. ABG AND CXR ORDERED BLOOD SUGAR - 130 MG/DL.
--- NOTE | 2019-08-05 17:56 | NUR ---
RT note Rapid response was called, pt had increased WOB and SpO2 was 79% upon arrival. Pt was placed on 15L non-rebreather and ABG was drawn. Pt was then transferred to ICU to be placed on BiPAP due to respiratory distress. Pt is s till tachypneic with moderate accessory muscle usage. Addendum: 08/05/19 at 1801 by ALEJO IQBAL RT Amended: Links added.
--- NOTE | 2019-08-05 18:20 | NUR ---
ICU/RN: PT TRANSFERRED TO ROOM 255 POST UMBRELLA FRAME MAKER. PT ON BIPAP WITH SETTINGS ORDERED BY MD. MOTHER OF PT AT BEDSIDE. PT IN DISTRESS, DIFFICULTY BREATHING, RESTLESS, TACHYCARDIC AND TACHYPNEIC. ABG DONE ON THE FLOOR. RESULTS RELAYED TO DR. ROSEN AND DR. WOODRUFF. ORDERS RECEIVED AND CARRIED OUT. UPDATES GIVEN TO MOTHER. BILATERAL WRIST RESTRAINTS ON, PT PULLING OUT IVS AND BIPAP MASK. LARGE BM NOTED. PT CLEANED, BED BATH GIVEN, TURNED AND REPOSITIONED.
[2019-08-05] MEDS ORDERED: PIPERACILLIN /TAZOBACTAM 3.375 G in IV D5W 50 ML IV SCH (18:27)
[2019-08-05] MEDS: METOCLOPRAMIDE HCL 10 MG/2 ML VIAL IV SCH (19:16)
--- NOTE | 2019-08-05 19:36 | NUR ---
ICU/RN: ENDING NOTES,AM BEDSIDE REPORT ENDORSED TO NIGHT NURSE. PT CONTINUES ON BIPAP WITH SETTINGS ORDERED. SINUS TACH ON TELE. ABG WILL BE DONE ON BIPAP. BED BATH GIVEN, TURNED AND REPOSITIONED. WILL CONTINUE CARE
--- NOTE | 2019-08-05 19:45 | NUR ---
GRILL PREP COOK: PT REMAINS ON BIPAP WT SETTINGS ORDERED. WT CONFUSION AND NOTED WT SHALLOW BREATHING, RESTLESSNESS AND TACHYCARDIA GEAR HOBBER OPERATOR. AFEBRILE. CONTINUE ON D5NS AT 100ML/HR WT NO S/S OF ELAN MIDLINE INFILTRATION. MINIMAL ORAL BLEED AND HEMATURIA ON F/C. BILAT. SOFT WRIST RESTRAINTS IN PLACE FOR EPISODES OF TRYING TO PULL TUBINGS. SKIN AND CIRCULATION WNL. HOB AT 35 DEGREES, BED IN LOWEST POSITION AND LOCKED, BED ALARM ACTIVATED. SIDE RAILS UP X3. WILL CONTINUE TO MONITOR.
--- NOTE | 2019-08-05 20:06 | NUR ---
POST ABG DONE ON BIPAP. NOTIFIED DR WOODRUFF WITH THE RESULT. RN NOTIFIED. TITRATE FIO2.
[2019-08-05] MEDS ORDERED: LORAZEPAM INJ 2 MG/ML VIAL IV ONE (20:30)
[2019-08-05] MEDS: LACTULOSE UDC 200 G in SODIUM CHLORIDE IRRIG SOLUTION 400 ML IR SCH (20:34)
--- NOTE | 2019-08-05 21:50 | NUR ---
GEOMETRICIAN: WAYNE HOP SEPARATOR CAME AND EVALUATED PT; REMAINS VERY RESTLESS ON BIPAP, SINUS TACH ON TITLE INSURANCE SALES REPRESENTATIVE. DNP WT ORDER FOR INTUBATION FOR AIRWAY PROTECTION.
--- NOTE | 2019-08-05 22:10 | NUR ---
STAMPING DIE TRY OUT WORKER: DR. IQBAL FROM ER INTUBATED PT (ETT 7.5 AT 25CM). GIVEN ETOMIDATE 20MG AND 100MG SUCC. CALLED RADIOLOGY FOR STAT CXR.
--- NOTE | 2019-08-05 22:20 | NUR ---
PRODUCTION SUPERVISOR TRAINEE: CALLED AND LEFT A MSG TO GILBERT JORDAN.
[2019-08-05 22:47] LABS: ABG BASE EXCESS -3.6 mmol/L; ABG OXYGEN SATURATION 98.2 % (92.0-98.5); ABG PCO2 36.9 mmHg (35.0-45.0); ABG PH 7.374 (7.350-7.450); ABG PO2 143.7 mmHg (75.0-100.0); COHb 0.3 % (0.5-1.5); MetHb 0.8 % (0.0-1.5); O2Hb 97.1 % (94.0-97.0); SITE, ABG Right Radial
[2019-08-05 22:48] LABS: ABG BASE EXCESS -4.7 mmol/L; ABG OXYGEN SATURATION 90.7 % (92.0-98.5); ABG PCO2 44.7 mmHg (35.0-45.0); ABG PH 7.302 (7.350-7.450); ABG PO2 69.7 mmHg (75.0-100.0); AaDO2 598.6 mmHg; COHb 0.3 % (0.5-1.5); MetHb 0.5 % (0.0-1.5); PEEP,BG 10 cm H2O; SITE, ABG Right Radial
--- NOTE | 2019-08-05 22:49 | NUR ---
@2205 ER MD CALLED FOR INTUBATION. PT WAS ON BIPAP AND VERY RESTLESS NOT TOLERATING IT. PT ORALLY INTUBATED WITH 7.5 ETT SECURED AT 25CM AT THE LIP VIA ANCHOR FAST. POSITIVE COLOR CHANGE ON CO2 DETECTOR. BILAT CHEST RISE. PLACED ON 840 VENT. AC 24, 550, 100%, +10, ABG POST INTUBATION DONE AND NOTIFIED RN DEEPAK AND THERMODYNAMICS PROFESSOR WITH THE RESULT.
[2019-08-05] MEDS: PROPOFOL 100 ML IV PRN (22:53)
--- NOTE | 2019-08-05 22:55 | NUR ---
SPORTS STATISTICIAN: DUSTY CORONA CALLED AND UPDATED PT STATUS.
--- NOTE | 2019-08-05 23:00 | NUR ---
RELIEF OPERATOR: RELAYED ABG RESULT TO DR. WOODRUFF AND MADE HIM AWARE THAT 02 SAT IN THE HIGH 80s-LOW 90s WT FI02 OF 100%. HAS NO NEW ORDER AT THIS TIME.
[2019-08-06] VITALS (51 sets, daily range): BP systolic 50–137; BP diastolic 24–54
[2019-08-06] MEDS: PIPERACILLIN /TAZOBACTAM 3.375 G in IV D5W 100 ML IV SCH ×2 (01:06→09:07)
[2019-08-06] MEDS: LACTULOSE UDC 200 G in SODIUM CHLORIDE IRRIG SOLUTION 400 ML IR SCH ×2 (02:00→07:00)
[2019-08-06] MEDS: IV D5/ 0.9% NACL 1,000 ML IV PRN (02:04)
[2019-08-06] MEDS: METOCLOPRAMIDE HCL 10 MG/2 ML VIAL IV SCH ×2 (02:16→09:37)
[2019-08-06 04:43] LABS: BASOPHILS # (AUTO) 0.2 /CMM (0.0-0.2); BASOPHILS % (AUTO) 0.6 % (0.0-2.0); EOSINOPHILS % (AUTO) 0.4 % (0.0-6.0); HEMATOCRIT 38 % (39-51); HEMOGLOBIN 12.6 g/dL (13.5-17.5); LYMPHOCYTES # (AUTO) 2.7 /CMM (0.8-4.8); MEAN CORPUSCULAR HGB CONC 33 g/dl (31.0-36.0); MEAN CORPUSCULAR VOLUME 99 fL (80-96); MONOCYTES # (AUTO) 2.9 /CMM (0.1-1.30); MONOCYTES % (AUTO) 7.6 % (2.0-12.0); NEUTROPHILS # (AUTO) 32.4 /CMM (1.8-8.9); NEUTROPHILS % (AUTO) 84.4 % (43.0-81.0); PLATELET COUNT (AUTO) 57 /CMM (150-450); RED BLOOD CELL COUNT(AUTO) 3.86 MIL/uL (4.5-6.0)
[2019-08-06] MEDS: PROPOFOL 100 ML IV PRN ×2 (04:52→09:11)
[2019-08-06 05:04] LABS: ALBUMIN 1.5 g/dL (3.4-5.0); BILIRUBIN,TOTAL 8.1 mg/dL (0.2-1.0); CALCIUM, SERUM 7.1 mg/dL (8.5-10.1); CREATININE 1.3 mg/dL (0.6-1.3); MAGNESIUM 2.5 mg/dL (1.8-2.4); PHOSPHORUS 5.5 mg/dL (2.5-4.9); POTASSIUM 5.8 mmol/L (3.5-5.1); TOTAL PROTEIN, SERUM 5.3 g/dL (6.4-8.2)
[2019-08-06 05:10] LABS: WHITE BLOOD COUNT (AUTO) 38.4 K/uL (4.3-11.0)
[2019-08-06 05:24] LABS: BAND % (MANUAL) 6 % (0.0-5.0); LYMPHOCYTES % (MANUAL) 4 % (16-48); MONOCYTES % (MANUAL) 5 % (0-11.0); NEUTROPHILS % (MANUAL) 85 (42-76)
--- NOTE | 2019-08-06 05:40 | NUR ---
MANAGER OPERATING: DR. WOODRUFF CALLED AND UPDATED PT STATUS. MD MADE AWARE THAT PT STILL NOTED WT LABORED BREATHING, TACHYPNEIC, BP IN THE HIGH 80s TO LOW 90s, ON DIPRIVAN AT 25MCG/KG/MIN, 02 SAT IN THE LOW 90s. WT NEW ORDERS. NOTED AND CARRIED OUT.
--- NOTE | 2019-08-06 05:50 | NUR ---
VENT CHANGES PER DR WOODRUFF. RATE 28, VT 650.
[2019-08-06 05:53] LABS: ABG BASE EXCESS -10.5 mmol/L; ABG OXYGEN SATURATION 92.9 % (92.0-98.5); ABG PCO2 48.9 mmHg (35.0-45.0); ABG PH 7.178 (7.350-7.450); ABG PO2 83.2 mmHg (75.0-100.0); AaDO2 580.9 mmHg; COHb 0.1 % (0.5-1.5); MetHb 0.8 % (0.0-1.5); O2Hb 92.1 % (94.0-97.0); PEEP,BG 10 cm H2O; SITE, ABG Left Brachial
--- NOTE | 2019-08-06 05:54 | NUR ---
STAT ABG PER DR WOODRUFF. NOTIFIED RN WITH THE RESULT. NOTIFIED PELEG WITH THE RESULT. Addendum: 08/06/19 at 0648 by ALFIE MCDUFFIE RT STAT ABG DONE AT 0584
[2019-08-06] MEDS ORDERED: NOREPINEPHRINE 4 MG/4 ML AMPUL IV ONE (05:56)
[2019-08-06] MEDS ORDERED: NOREPINEPHRINE 16 MG in IV D5W 500 ML IV PRN (06:00)
[2019-08-06] MEDS ORDERED: SODIUM BICARBONATE SYR 50 MEQ/50 ML DISP.SYRIN ONE (06:08)
[2019-08-06] MEDS ORDERED: Sodium Bicarbonate 150 MEQ in IV D5W 1,000 ML IV PRN (06:30)
--- NOTE | 2019-08-06 07:00 | NUR ---
DAY CARE SUPERVISOR: PT NOW ON LEVOPHED AT 22MCG/MIN, SODIUM BICARB AT 100ML/HR, DIPRIVAN AT 30MCG/KG/MIN. 02 SAT STILL IN HIGH 80s. WILL ENDORSE TO DAY SHIFT FOR CONTINUITY OF CARE.
--- NOTE | 2019-08-06 08:00 | NUR ---
ICU/RN INITIAL NOTES,AM RECEIVED BEDSIDE REPORT FROM NIGHT NURSE. PT INTUBATED AND SEDATED. ETT 7.5 25 CM AT THE LIP. PT ON VENT SETTINGS ORDERED BY MD. PT TACHYPNEIC, FAST SHALLOW RESPIRATIONS NOTED. PT ON MAX DOSE OF LEVO FOR BP SUPPORT. SINUS ON TELE. BILATERAL SOFT WRIST RESTRAINTS IN PLACE FOR PT SAFETY. LEFT UPPER ARM MIDLINE PATENT AND INTACT, NO S/S OF INFECTION OR INFILTRATION NOTED. ORDERS FOR PICC LINE RECEIVED, WILL FOLLOW THROUGH. FAMILY WILL BE CONTACTED TO INFORM OF CRITICAL POSITION. ALL NEEDS WILL BE ATTENDED TO, SAFETY MEASURES TAKEN, BED IN LOW POSITION, REAL ESTATE INVESTOR RAILS UP CALL LIGHT WITHIN REACH. WILL CONTINUE CARE.
[2019-08-06 08:27] LABS: ABG BASE EXCESS -10.3 mmol/L; ABG OXYGEN SATURATION 85.4 % (92.0-98.5); ABG PCO2 50.4 mmHg (35.0-45.0); ABG PH 7.174 (7.350-7.450); ABG PO2 60.3 mmHg (75.0-100.0); AaDO2 602.3 mmHg; COHb 0.4 % (0.5-1.5); MetHb 0.6 % (0.0-1.5); O2Hb 84.5 % (94.0-97.0); PEEP,BG 10 cm H2O; SITE, ABG Right Radial; VT, ABG 650 mL
--- NOTE | 2019-08-06 08:27 | NUR ---
RT note ABG results not transferring through to [facility], downtime procedure followed and results placed in pt chart. Dr. Bravo and MADHURI Ferguson notified and aware of ABG results and vent changes were made. Addendum: 08/06/19 at 0844 by ALEJO IQBAL RT Amended: Links added.
--- NOTE | 2019-08-06 08:35 | NUR ---
PER MD ROSEN, PROCEDURE ON HOLD , PATIENT NOT STABLE, RN WILL CALL BACK IF ANY CHANGES
[2019-08-06] MEDS ORDERED: ETOMIDATE 2 MG/ML VIAL IV ONE (08:37)
[2019-08-06] MEDS ORDERED: FEE EMEERGENCY 1 MIN EA MC ONE ×2 (08:37→14:13)
[2019-08-06] MEDS: FOLIC ACID 1 MG TABLET PO SCH (08:47)
[2019-08-06] MEDS: THIAMINE HCL 100 MG TABLET PO SCH (08:47)
[2019-08-06] MEDS: SPIRONOLACTONE 25 MG TABLET PO SCH (08:47)
--- NOTE | 2019-08-06 08:50 | NUR ---
ICU/RN: Called Dyana Lynn, mother [phone] and Pablo, brother [phone] and [phone] (left voicemail). Awaiting call back.
[2019-08-06] MEDS ORDERED: PHENYLEPHRINE 80 MG in IV NS 0.9% 250 ML IV PRN (09:00)
[2019-08-06] MEDS: FUROSEMIDE 20 MG/2 ML VIAL IV SCH (09:01)
[2019-08-06] MEDS ORDERED: FUROSEMIDE 40 MG/4 ML VIAL IV ONE (10:30)
[2019-08-06] MEDS ORDERED: VASOPRESSIN INJ 50 UNIT in IV D5W 497.5 ML IV PRN (10:30)
--- NOTE | 2019-08-06 11:00 | NUR ---
ICU/RN: Dr Damian at bedside discussing pt's prognosis with pt's mom and girlfriend. Questions answered, pt remains a full code per family.
[2019-08-06 12:09] LABS: ABG BASE EXCESS -16.9 mmol/L; ABG OXYGEN SATURATION 86.2 % (92.0-98.5); ABG PCO2 38.8 mmHg (35.0-45.0); ABG PH 7.105 (7.350-7.450); ABG PO2 64.5 mmHg (75.0-100.0); AaDO2 609.7 mmHg; COHb 0.6 % (0.5-1.5); MetHb 0.5 % (0.0-1.5); O2Hb 85.3 % (94.0-97.0); PEEP,BG 10 cm H2O; SITE, ABG Right Brachial; VT, ABG 700 mL
--- NOTE | 2019-08-06 13:00 | NUR ---
ICU/RN: Extensive discussion with family regarding code status; mother remains hopeful pt can speak again. Remains full code.
--- NOTE | 2019-08-06 13:26 | NUR ---
RT CODE SONA CALLED. COMPRESSIONS STARTED AND BEGAN BAGGING PT WITH 100% O2.
--- NOTE | 2019-08-06 13:35 | NUR ---
RT PT PRONOUNCED AT [address] PRIETO.
--- NOTE | 2019-08-06 13:50 | NUR ---
ICU/RN: PICC LINE NURSE AT BEDSIDE, PT NOTED TO CONVERT FROM SINUS RHYTHM TO STEFF TO ASYSTOLE. CODE SONA CALLED AT 1325. CODE BLUE INITIATED PER ACLS GUIDELINES. PT PRONOUNCED AT 1335 BY . FAMILY AT BEDSIDE. PLEASE REFER TO CODE BLUE SHEET FOR DETAILS.
[2019-08-06] MEDS ORDERED: EPINEPHRINE (1:10,000) SYRINGE 1 MG/10 ML DISP.SYRIN IVP ONE (14:13)
[2019-08-06] MEDS ORDERED: DEXTROSE 50%-WATER 50 ML DISP.SYRIN IV ONE (14:13)
--- NOTE | 2019-08-06 16:30 | NUR ---
ICU/RN: POST MORTEM CARE DONE. PT TRANSPORTED TO [facility]. ALL BELONGINGS SENT HOME WITH FAMILY
== END 2019-08-06 17:14 | disposition expired | DRG 816 ==
LOC: ER 00:50 → MEDSG2 02:28 → TELE1 02:42 → MEDSG1 08-01 10:31 → ICU 08-05 17:26
PROVIDERS: ATTEND Internal Medicine
PROC: 30233R1 Transfusion of Nonautologous Platelets into Peripheral Vein, Percutaneous Approach (ICD-10-PCS; principal; 2019-07-31)
PROC: 05HC33Z Insertion of Infusion Device into Left Basilic Vein, Percutaneous Approach (ICD-10-PCS; 2019-08-03)
PROC: 05HC33Z Insertion of Infusion Device into Left Basilic Vein, Percutaneous Approach (ICD-10-PCS; 2019-08-04)
PROC: 5A1935Z Respiratory Ventilation, Less than 24 Consecutive Hours (ICD-10-PCS; 2019-08-05)
PROC: 5A09357 Assistance with Respiratory Ventilation, Less than 24 Consecutive Hours, Continuous Positive Airway Pressure (ICD-10-PCS; 2019-08-05)
PROC: 0BH17EZ Insertion of Endotracheal Airway into Trachea, Via Natural or Artificial Opening (ICD-10-PCS; 2019-08-06)
PROC: 5A2204Z Restoration of Cardiac Rhythm, Single (ICD-10-PCS; 2019-08-06)
DX: T40.5X1A Poisoning by cocaine, accidental (unintentional), initial encounter (principal); N17.0 Acute kidney failure with tubular necrosis; I33.0 Acute and subacute infective endocarditis; A41.9 Sepsis, unspecified organism; J96.02 Acute respiratory failure with hypercapnia; J96.01 Acute respiratory failure with hypoxia; Z99.11 Dependence on respirator [ventilator] status; I33.9 Acute and subacute endocarditis, unspecified; G92 Toxic encephalopathy; L89.513 Pressure ulcer of right ankle, stage 3; I85.00 Esophageal varices without bleeding; E46 Unspecified protein-calorie malnutrition; K76.6 Portal hypertension; E87.1 Hypo-osmolality and hyponatremia; F14.188 Cocaine abuse with other cocaine-induced disorder; Y92.89 Other specified places as the place of occurrence of the external cause; K70.31 Alcoholic cirrhosis of liver with ascites; B96.89 Other specified bacterial agents as the cause of diseases classified elsewhere; D69.6 Thrombocytopenia, unspecified; E87.5 Hyperkalemia; Z68.33 Body mass index [BMI] 33.0-33.9, adult; E87.70 Fluid overload, unspecified; D17.9 Benign lipomatous neoplasm, unspecified; F10.10 Alcohol abuse, uncomplicated; F17.200 Nicotine dependence, unspecified, uncomplicated; M20.42 Other hammer toe(s) (acquired), left foot; M20.41 Other hammer toe(s) (acquired), right foot; K52.9 Noninfective gastroenteritis and colitis, unspecified; K56.7 Ileus, unspecified; M43.17 Spondylolisthesis, lumbosacral region; M48.07 Spinal stenosis, lumbosacral region; B95.5 Unspecified streptococcus as the cause of diseases classified elsewhere; E87.2 Acidosis
CPT/HCPCS: 31720; 36410; 36415; 36600; 70450-TC; 71045-TC; 74018; 76705-TC; 80048-TC; 80053-TC; 80074; 80076-TC; 80202-TC; 80305; 81000-TC; 82140-TC; 82248-TC; 82533; 82570-TC; 82803-TC; 82962-TC; 83605-TC; 83690-TC; 83735-TC; 84100-TC; 84155-TC; 84300-TC; 84443-TC; 84550-TC; 85025-TC; 85610-TC; 85730-TC; 86850-TC; 87040-TC; 87081-TC; 87086-TC; 87186-TC; 92950-TC; 93307-TC; 94002-TC; 94760-TC; 99082-TC; A4216; A6403; C1751; G0378; G0480; J0171; J0696; J1630; J1940; J2060; J2270; J2370; J2405; J2543; J2765; J3370; J3411; J3490; J7030; J7040; J7042; J7050; J7060; J7070; P9016-BL; P9034-BL